=== PATIENT | male | born 2000 | race Caucasian/White ===

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

== ENCOUNTER 2024-03-20 00:05 | Emergency (ER) | payer OTHER ==
[~2024-03-20] VITALS: Ht 175.3 cm; Wt 72.7 kg
[2024-03-20 00:11] VITALS: TEMP 97.2
[2024-03-20 00:25] LABS: COVID AG,FIA SOURCE NASAL SWAB
[2024-03-20 00:42] LABS: RAPID GROUP A STREP NEGATIVE (NEGATIVE)
[2024-03-20 00:51] LABS: SARS-COV2 (COVID) ANTIGEN,FIA Negative (Negative)
[2024-03-20 00:52] LABS: INFLUENZA TYPE A NEGATIVE FOR TYPE A (NEGATIVE); INFLUENZA TYPE B POSITIVE FOR TYPE B (NEGATIVE)
[2024-03-20 00:55] VITALS: BP 137/82; PULSE 69; RESP 20; O2SAT 99
[2024-03-20] MEDS ORDERED: ACET-66 PO (01:33)
[2024-03-20] MEDS ORDERED: IBUP-1554 PO (01:33)
[2024-03-20] MEDS ORDERED: GUAIFDM PO (01:33)
[2024-03-20] MEDS ORDERED: DIPH50CA37 PO (01:33)
[2024-03-20] MEDS: ACETAMINOPHEN 500 MG TABLET PO ONE (02:17)
[2024-03-20] MEDS: IBUPROFEN 600 MG TABLET PO ONE (02:17)
[2024-03-20] MEDS: GuaiFENesin/D-METHORPHAN [SUGAR-FREE] 200-20MG/10 ML SYRUP UDCUP PO ONE (02:17)
[2024-03-20] MEDS: DiphenhydrAMINE HCL 25 MG CAPSULE PO ONE (02:18)
== END 2024-03-20 02:24 | disposition home or self-care (01) ==
LOC: EMS 00:06
DX: J10.1 Influenza due to other identified influenza virus with other respiratory manifestations (principal); J45.909 Unspecified asthma, uncomplicated; Z20.822 Contact with and (suspected) exposure to COVID-19
CPT/HCPCS: 87430; 87804; 99284; Z7502; Z7610